=== PATIENT | female | born 1970 | race Caucasian/White ===

== ENCOUNTER → 2019-11-24 16:52 | Outpatient (CLI) | payer BC, SELFPAY ==
[2019-11-24 18:08] LABS: Basophils # 0.1 K/mm3 (0-0.2); Basophils % 1.3 % (0.1-2.0); Eosinophils # 0.8 K/mm3 (0.0-0.4); Eosinophils % 8.6 % (0.1-12.0); Hematocrit 46.4 % (37.0-47.0); Hemoglobin 15.8 g/dL (12.2-16.2); Lymphocytes # 2.3 K/mm3 (0.7-4.5); Lymphocytes % 25.3 % (10-50); Mean Corpuscular HGB Conc 34.1 g/dL (31.8-35.4); Mean Corpuscular Hemoglobin 32.9 pg (27.0-31.2); Mean Corpuscular Volume 96.5 fl (81-99); Mean Platelet Volume 8.7 fl (7.4-10.4); Monocytes # 0.4 K/mm3 (0.1-1.0); Monocytes % 4.9 % (1.7-9.3); Neutrophils # 5.5 K/mm3 (1.8-7.8); Platelet Count 936 K/mm3 (142-424); Red Blood Count 4.81 M/mm3 (4.20-5.40); Red Cell Distribution Width 14.1 % (11.5-17.5); White Blood Count 9.1 K/mm3 (4.8-10.8)
[2019-11-24 18:36] LABS: Chloride 102 mmol/L (98-107); Sodium 137 mmol/L (136-145)
[2019-11-24 18:37] LABS: Potassium 5.5 mmoL/L (3.5-5.1)
[2019-11-24 18:39] LABS: Alanine Aminotransferase 29 U/L (12-78); Albumin Level 4.6 g/dl (3.5-5.0); Albumin/Globulin Ratio 1.3 (1.1-1.8); Alkaline Phosphatase 103 U/L (38-126); Anion Gap 14.5 mEq/L (5-15); Aspartate Amino Transferase 34 U/L (14-36); Bilirubin,Total 0.5 mg/dl (0.2-1.3); Blood Urea Nitrogen 11 mg/dl (7-17); Calcium 10.4 mg/dl (8.4-10.2); Carbon Dioxide 26 mmol/L (22.0-30.0); Estimated Glomerular Filt Rate 76 ml/min (>60); GFR (African American) 92 ML/MIN (>60); Globulin 3.6 g/dL (1.3-3.2); Glucose 91 mg/dl (74-100); Total Protein,Serum 8.2 g/dl (6.3-8.2)
[2019-11-24 19:07] LABS: Thyroid Stimulating Hormone 3.14 uIU/mL (0.465-4.68)
[2019-11-24 19:12] LABS: Free T4 (Free Thyroxine) 0.96 ng/dl (0.78-2.19)
[2019-11-28 09:15] LABS: HIV Screen 4th Generation wRfx Non Reactive (Non Reactive); Hepatitis B Surface Antigen Negative (Negative); Vitamin D 25 Hydroxy 17.5 ng/mL (30.0-100.0)
== END ==
PROVIDERS: Visit Provider Emergency Medicine
DX: A69.9 Spirochetal infection, unspecified (principal); E55.9 Vitamin D deficiency, unspecified; K57.90 Diverticulosis of intestine, part unspecified, without perforation or abscess without bleeding
CPT/HCPCS: 80053; 82652; 84439; 84443; 85025; 86703; 87340; G0432

== ENCOUNTER → 2019-12-01 17:08 | Outpatient (CLI) | payer BC, SELFPAY ==
[2019-12-03 08:11] LABS: Hep A Ab, IgM Negative (Negative); Hep A Ab, Total Positive (Negative); Hep B Core Ab, Total Negative (Negative)
[2019-12-03 10:53] LABS: Hep B Surface Ab, Qual Non Reactive (.); Hepatitis C Antibody <0.1 s/co ratio (0.0-0.9)
== END ==
PROVIDERS: Visit Provider Emergency Medicine
DX: Z11.59 Encounter for screening for other viral diseases (principal)
CPT/HCPCS: 86704; 86706; 86708; 87380

== ENCOUNTER → 2019-12-04 07:32 | Outpatient (CLI) | payer BC, SELFPAY ==
--- NOTE | 2019-12-04 07:32 | MM_ITS ---
PROCEDURE: MM DIG SCREENING MAMM BI W/CAD Digital Breast Tomosynthesis Included CLINICAL INDICATION: screening There is no personal or family history of breast cancer COMPARISON: Previous mammograms were obtained and [place] but they are not available for review TECHNIQUE: Standard CC and MLO images and 3D Tomosynthesis was obtained. R2 CAD reviewed. FINDINGS: Mild scattered fibroglandular densities are seen in both breasts on a background of primarily fatty breast parenchyma. There is a benign-appearing calcification right breast. Ross images were reviewed and there is no suspicious lesion in either breast and no suspicious microcalcifications. IMPRESSION: Fatty type breast parenchyma with no suspicious lesions seen BI-RAD Category: 2 Benign Finding(s) FOLLOW-UP: 1YR 1 Year Follow-up (A letter has been sent to the patient regarding results of the study.) Dictated by: Dr. Ryan Bourne MD 12/04/2019 16:[address] Ryan Bourne MD in [place] 12/04/2019 16:55
--- NOTE | 2019-12-04 07:32 | FL_ITS ---
PROCEDURE: FL BARIUM SWALLOW CLINICAL INDICATION: dysphagia Dysphagia, heartburn COMPARISON: No exams were available for comparison TECHNIQUE: In the upright position the patient was observed to swallow barium in both the AP and lateral view. The cervical esophagus was examined under fluoroscopy with images obtained. The patient was then placed prone in the right anterior oblique position and was observed to swallow barium with Valsalva technique . FLUOROSCOPY TIME: 1 minutes FINDINGS: There was mild spasm of the distal esophagus which did resolve. No annular constricting lesions or polypoid filling defects. There is a small sliding hiatal hernia with a minimally constricting Schatzki's ring IMPRESSION: Small sliding hiatal hernia with minimally constricting Schatzki's ring Dictated by: Reg Chi MD 12/04/2019 11:18 Electronically signed by Reg Chi MD in [place] 12/04/2019 11:18
== END ==
PROVIDERS: PCP Emergency Medicine; Visit Provider Emergency Medicine
DX: Z12.31 Encounter for screening mammogram for malignant neoplasm of breast (principal); R13.10 Dysphagia, unspecified
CPT/HCPCS: 74220; 77063; 77067

== ENCOUNTER → 2019-12-24 07:46 | Outpatient (CLI) | payer BC, SELFPAY ==
[2019-12-24 09:27] LABS: Coronavirus 19 IgG Antibody Negative (Negative); Coronavirus 19 IgM Antibody Negative (Negative)
== END ==
PROVIDERS: Visit Provider Surgery
DX: Z01.818 Encounter for other preprocedural examination (principal)
CPT/HCPCS: 36415; 86328

== ENCOUNTER → 2020-01-07 15:16 | Outpatient (CLI) | payer BC, SELFPAY ==
[2020-01-07 16:13] LABS: Coronavirus 19 IgG Antibody Negative (Negative); Coronavirus 19 IgM Antibody Negative (Negative)
== END ==
PROVIDERS: Visit Provider Surgery
DX: Z01.818 Encounter for other preprocedural examination (principal)
CPT/HCPCS: 36415; 86328

== ENCOUNTER 2020-01-08 07:02 | Day surgery (SDC) | payer BC, SELFPAY ==
--- NOTE | 2019-12-23 09:44 | SUR.PREOP ---
12/23/2019 @ 930--PHONE CALL MADE TO PATIENT. PATIENT UNDERSTANDS THAT LAB WORK AND COVID TESTING NEEDS TO BE COMPLETED @ 830 ON 12/24/2019. PATIENT UNDERSTANDS IF LAB WORK AND COVID-19 TESTS ARE NOT COMPLETED BY 12PM ON THAT DATE, THE SURGERY SCHEDULED WILL BE CANCELLED AND RESCHEDULED FOR ANOTHER TIME.
[2020-01-07 08:54] VITALS: BMI 37.5
--- NOTE | 2020-01-08 08:02 | SUR.PREOP ---
Pt very anxious and fearful of EGD. Ebony Fontana CRNA and Jarad Rushing RN have spoke with pt and her concerning fears. Pt fearful of IV and anesthesia. Despite these measures, pt choosing to cancel for today. Pt stated that she is feeling better with current treatment and doesn't really need EGD. Dressing and voicing ready to go. Pt accompanied by out of preop area.
== END 2020-01-08 08:02 | disposition home or self-care (01) ==
LOC: OUTP 07:03
PROVIDERS: PCP Emergency Medicine; Visit Provider Surgery
PROC: 0DJ08ZZ Inspection of Upper Intestinal Tract, Via Natural or Artificial Opening Endoscopic (ICD-10-PCS; CPT 43235; principal; 2020-01-08 08:30)
DX: Z53.29 Procedure and treatment not carried out because of patient's decision for other reasons (principal); R13.10 Dysphagia, unspecified; K44.9 Diaphragmatic hernia without obstruction or gangrene; K22.2 Esophageal obstruction; Z79.82 Long term (current) use of aspirin; Z79.899 Other long term (current) drug therapy; I10 Essential (primary) hypertension; E78.5 Hyperlipidemia, unspecified; Z72.0 Tobacco use; Z80.9 Family history of malignant neoplasm, unspecified; Z82.49 Family history of ischemic heart disease and other diseases of the circulatory system; Z88.1 Allergy status to other antibiotic agents
CPT/HCPCS: 43235

== ENCOUNTER → 2020-08-19 17:45 | Outpatient (CLI) | payer BC, SELFPAY ==
[2020-08-19 18:38] LABS: Basophils # 0.1 K/mm3 (0-0.2); Basophils % 0.9 % (0.1-2.0); Eosinophils # 0.6 K/mm3 (0.0-0.4); Eosinophils % 4.5 % (0.1-12.0); Hematocrit 41.6 % (37.0-47.0); Hemoglobin 13.9 g/dL (12.2-16.2); Lymphocytes # 3.2 K/mm3 (0.7-4.5); Lymphocytes % 26.8 % (10-50); Mean Corpuscular HGB Conc 33.3 g/dL (31.8-35.4); Mean Corpuscular Hemoglobin 31.3 pg (27.0-31.2); Mean Platelet Volume 7.4 fl (7.4-10.4); Monocytes # 0.5 K/mm3 (0.1-1.0); Monocytes % 4.2 % (1.7-9.3); Neutrophils # 7.7 K/mm3 (1.8-7.8); Neutrophils % 63.6 % (37.0-80.0); Platelet Count 893 K/mm3 (142-424); Red Blood Count 4.43 M/mm3 (4.20-5.40); Red Cell Distribution Width 14.1 % (11.5-17.5); White Blood Count 12.1 K/mm3 (4.8-10.8)
[2020-08-19 18:45] LABS: Chloride 104 mmol/L (98-107); Potassium 5.6 mmoL/L (3.5-5.1); Sodium 141 mmol/L (136-145)
[2020-08-19 18:48] LABS: Alanine Aminotransferase 51 U/L (12-78); Albumin Level 4.9 g/dl (3.5-5.0); Albumin/Globulin Ratio 1.5 (1.1-1.8); Alkaline Phosphatase 64 U/L (38-126); Anion Gap 14.6 mEq/L (5-15); Aspartate Amino Transferase 50 U/L (14-36); Bilirubin,Total 0.6 mg/dl (0.2-1.3); Blood Urea Nitrogen 15 mg/dl (7-17); Carbon Dioxide 28 mmol/L (22.0-30.0); Cholesterol 238 mg/dl (140-200); Estimated Glomerular Filt Rate 66 ml/min (>60); GFR (African American) 80 ML/MIN (>60); Globulin 3.2 g/dL (1.3-3.2); Total Protein,Serum 8.1 g/dl (6.3-8.2); Triglycerides 95 mg/dl (30-150); VLDL Cholesterol 19 mg/dL (0-40)
[2020-08-19 18:49] LABS: Chol/HDL Ratio 3.6 (1-3.5); Glucose 83 mg/dl (74-100); HDL Cholesterol 67 mg/dl (40-60)
[2020-08-19 18:59] LABS: Direct LDL Cholesterol 135.43 mg/dL (100-129)
[2020-08-19 19:19] LABS: Thyroid Stimulating Hormone 2.27 uIU/mL (0.465-4.68)
[2020-08-19 19:21] LABS: 25-OH Vitamin D, Total 33.8 ng/mL (30-100)
== END ==
PROVIDERS: Visit Provider Family Medicine
DX: K57.90 Diverticulosis of intestine, part unspecified, without perforation or abscess without bleeding (principal); E78.5 Hyperlipidemia, unspecified; E55.9 Vitamin D deficiency, unspecified
CPT/HCPCS: 80053; 80061; 82306; 84443; 85025